=== PATIENT | female | born 1955 | race Hispanic/Latino ===

== ENCOUNTER 2017-09-14 19:52 | Inpatient (IN) | payer BC, OTHER ==
[~2017-09-14] VITALS: Ht 162.6 cm; Wt 84.8 kg
[2017-09-14] MEDS ORDERED: SODIUM CHLORIDE 0.9% 1000ML 1,000 ML IV STA ×3 (20:36→23:23)
[2017-09-14] MEDS ORDERED: PANTOPRAZOLE 40 MG 10ML VIAL IV STA (20:36)
[2017-09-14] MEDS ORDERED: ONDANSETRON HCL INJ 2 MG/ML VIAL IV STA (20:36)
[2017-09-14] MEDS ORDERED: ACETAMINOPHEN 1000 MG/100 ML IV STA (20:39)
[2017-09-14] MEDS ORDERED: ONDANSETRON HCL INJ 2 MG/ML VIAL ONE (20:44)
[2017-09-14] MEDS ORDERED: SODIUM CHLORIDE 0.9% 1000ML 1,000 ML ONE (20:45)
[2017-09-14] MEDS ORDERED: ACETAMINOPHEN 1000 MG/100 ML 100 ML IV ONE (20:45)
[2017-09-14] MEDS ORDERED: PANTOPRAZOLE 40 MG 10ML VIAL ONE (20:45)
[2017-09-14 21:08] LABS: BASOPHILS % 0.2 % (0.0-1.0); EOSINOPHILS % 0.1 % (0.0-6.0); HEMATOCRIT 39.1 % (34.2-44.1); HEMOGLOBIN 13.6 g/dL (12.0-16.0); LYMPHOCYTES # (AUTO) 1.5 (1.0-3.2); LYMPHOCYTES % 10.5 % (18.0-39.1); MEAN CORPUSCULAR HEMOGLOBIN 28.2 pg (28-32); MEAN CORPUSCULAR HGB CONC 34.8 g/dL (31-35); MONOCYTES # (AUTO) 1.1 (0.2-0.8); MONOCYTES % 7.9 % (4.4-11.3); NEUTROPHILS # (AUTO) 11.7 (2.1-6.9); NEUTROPHILS % 80.3 % (38.7-80.0); PLATELET COUNT 210 x10e3/uL (140-360); RED BLOOD COUNT 4.83 x10e6/uL (3.6-5.1); RED CELL DISTRIBUTION WIDTH 12.5 % (11.7-14.4)
[2017-09-14] MEDS ORDERED: DIATRIZOATE MEGL/DIATRIZOA SOD 30 ML BTL PO ONE (21:14)
[2017-09-14 21:16] LABS: INR 1.07; PROTHROMBIN TIME 14.5 seconds (11.9-14.5)
[2017-09-14 21:17] LABS: PARTIAL THROMBOPLASTIN TIME 43.9 seconds (23.8-35.5)
[2017-09-14 21:27] LABS: ALBUMIN 3.3 g/dL (3.5-5.0); ALBUMIN/GLOBULIN RATIO 0.8 (0.8-2.0); ANION GAP 17.2 mmol/L (8-16); CALCIUM 8.8 mg/dL (8.4-10.2); CREATININE, SERUM 2.01 mg/dL (0.57-1.11); MAGNESIUM 1.9 MG/DL (1.3-2.1); POTASSIUM 3.2 mmol/L (3.5-5.1)
--- NOTE | 2017-09-14 21:31 | Diagnostic Imaging Report ---
EXAMINATION: CHEST SINGLE (PORTABLE) INDICATION: Nausea, vomiting, fever, cough COMPARISON: None FINDINGS: TUBES and LINES: None. LUNGS: Lungs are not well inflated. Lungs are clear. There is no evidence of pneumonia or pulmonary edema. PLEURA: No pleural effusion or pneumothorax. HEART AND MEDIASTINUM: The cardiomediastinal silhouette is unremarkable. BONES AND SOFT TISSUES: No acute osseous lesion. Soft tissues are unremarkable. UPPER ABDOMEN: No free air under the diaphragm. IMPRESSION: No acute thoracic abnormality. Signed by: Dr. James Mauricio M.D. on 09/14/2017 9:27 PM
[2017-09-14 21:33] LABS: CREATINE KINASE MB 1.3 ng/mL (0.00-5.00)
[2017-09-14] MEDS ORDERED: VITAMIN D1000 UNI1 PO (21:43)
[2017-09-14] MEDS ORDERED: LOSARTAN POTAS100 MG PO (21:43)
[2017-09-14] MEDS ORDERED: SERTRALINE HCL50 MG PO (21:43)
[2017-09-14] MEDS ORDERED: MYLAN (21:43)
[2017-09-14] MEDS ORDERED: METFORMIN HCL500 MG PO (21:43)
[2017-09-14 22:04] LABS: ABG PCO2 28 mmHg (41-51); ABG PH 7.47 (7.31-7.41)
[2017-09-14 22:05] LABS: ABG HCO3 20 mmol/L (23-28); ABG PO2 97 mmHg (80-105)
[2017-09-14 22:08] LABS: BILIRUBIN,URINE 1+ (NEGATIVE); KETONES,URINE NEGATIVE (NEGATIVE); LEUKOCYTE ESTERASE ,URINE 1+ (NEGATIVE); NITRITE,URINE NEGATIVE (NEGATIVE); URINE UROBILINOGEN 4 mg/dL (0.2 - 1)
[2017-09-14] MEDS ORDERED: VANCOMYCIN 1GM/NS 250 ML 250 ML IV STA (22:31)
[2017-09-14 22:36] LABS: CLARITY,URINE SL CLOUDY (CLEAR); COLOR,URINE AMBER (YELLOW); PROTEIN,URINE DIPSTICK 1+ (NEGATIVE)
[2017-09-14 22:40] LABS: BACTERIA,URINE MODERATE /HPF; EPITHELIAL CELLS,URINE FEW /LPF
[2017-09-14] MEDS ORDERED: CEFEPIME HCL 2 GM VIAL IV SCH (22:45)
--- NOTE | 2017-09-14 23:33 | Diagnostic Imaging Report ---
EXAM: CT Abdomen and Pelvis WITHOUT contrast INDICATION: Dehydration, nausea, vomiting, diarrhea COMPARISON: None. TECHNIQUE: Abdomen and pelvis were scanned utilizing a multidetector helical scanner from the lung base to the pubic symphysis without administration of IV contrast. Absence of intravenous contrast decreases sensitivity for detection of focal lesions and vascular pathology. Coronal and sagittal reformations were obtained. Routine protocol was performed. IV CONTRAST: None. ORAL CONTRAST: Gastrografin RADIATION DOSE: Total DLP: 635.97 mGy*cm Estimated effective dose: (DLP x 0.015 x size factor) mSv COMPLICATIONS: None FINDINGS: LINES and TUBES: None. LOWER THORAX: Unremarkable HEPATOBILIARY: No focal hepatic lesions. No biliary ductal dilation. GALLBLADDER: There are numerous stones in the gallbladder. No wall thickening. SPLEEN: No splenomegaly. PANCREAS: No focal masses or ductal dilatation. ADRENALS: No adrenal nodules KIDNEYS/URETERS: No hydronephrosis. No cystic or solid mass lesions. No stones. GI TRACT: No abnormal distention, wall thickening, or evidence of bowel obstruction. There are diverticula within the colon without evidence of diverticulitis. Appendix is normal. PELVIC ORGANS/BLADDER: The uterus is absent. The left ovary is present. Right ovary is not seen. The Chapa catheter decompresses the urinary bladder LYMPH NODES: No lymphadenopathy. VESSELS: There is mild atherosclerotic disease in the aorta and major arterial branches. PERITONEUM / RETROPERITONEUM: No free air or fluid. BONES: There are degenerative changes in the lumbar spine. SOFT TISSUES: Unremarkable. IMPRESSION: 1. No evidence of acute intra-abdominal or pelvic abnormality. 2. Cholelithiasis without evidence of acute cholecystitis. 3. Chapa catheter decompresses the bladder Signed by: Dr. James Mauricio M.D. on 09/14/2017 11:29 PM
--- NOTE | 2017-09-14 23:33 | Diagnostic Imaging Report ---
History: AMS Comparison studies: None Technique: Axial images were obtained from the skull base to the vertex. Coronal and sagittal reconstructions obtained from the axial data. Findings: Scalp/skull: No abnormalities. No fractures, blastic or lytic lesions. Extra-axial spaces: No masses. No fluid collections. Brain sulci: Appropriate for age. Ventricles: Normal in size and configuration. No hydrocephalus. Parenchyma: No abnormal densities. No masses, hemorrhage, acute or chronic cortical vascular insults. Sellar/suprasellar region: No abnormalities Craniocervical junction: Patent foramen magnum. No Chiari one malformation. IMPRESSION: No abnormalities . Signed by: DR Mynor Colon M.D. on 09/14/2017 11:29 PM
[2017-09-15] MEDS ORDERED: ONDANSETRON HCL INJ 2 MG/ML VIAL IV PRN
[2017-09-15] MEDS ORDERED: PROMETHAZINE 12.5MG/ NACL 0.9% 12.5 MG/50 ML BAG IV PRN (00:15)
[2017-09-15 00:45] LABS: BASOPHILS % 0.3 % (0.0-1.0); EOSINOPHILS % 0.1 % (0.0-6.0); HEMATOCRIT 30.2 % (34.2-44.1); HEMOGLOBIN 10.3 g/dL (12.0-16.0); LYMPHOCYTES # (AUTO) 1.5 (1.0-3.2); LYMPHOCYTES % 12.3 % (18.0-39.1); MEAN CORPUSCULAR HEMOGLOBIN 28.1 pg (28-32); MEAN CORPUSCULAR HGB CONC 34.1 g/dL (31-35); MEAN CORPUSCULAR VOLUME 82.3 fL (81-99); MONOCYTES # (AUTO) 1.1 (0.2-0.8); MONOCYTES % 8.7 % (4.4-11.3); NEUTROPHILS # (AUTO) 9.6 (2.1-6.9); NEUTROPHILS % 77.9 % (38.7-80.0); PLATELET COUNT 164 x10e3/uL (140-360); RED BLOOD COUNT 3.67 x10e6/uL (3.6-5.1); RED CELL DISTRIBUTION WIDTH 12.5 % (11.7-14.4)
[2017-09-15] MEDS ORDERED: SODIUM CHLORIDE 0.9% 1000ML 1,000 ML IV STA (01:12)
[2017-09-15] MEDS: POTASSIUM CHLORIDE 10MEQ/100ML 100 ML IV SCH ×3 (01:21→05:53)
[2017-09-15] MEDS ORDERED: SODIUM CHLORIDE 0.9% 250ML 250 ML ONE (02:30)
[2017-09-15] MEDS: SODIUM CHLORIDE 0.9% 1000ML 1,000 ML IV SCH ×4 (03:09→20:40)
[2017-09-15] MEDS: CEFEPIME 2 GM/NS 0.9% 100 ML 100 ML IV SCH ×2 (03:54→12:38)
[2017-09-15 05:58] LABS: BASOPHILS % 0.2 % (0.0-1.0); EOSINOPHILS % 0.1 % (0.0-6.0); HEMATOCRIT 33.7 % (34.2-44.1); HEMOGLOBIN 11.4 g/dL (12.0-16.0); LYMPHOCYTES # (AUTO) 1.2 (1.0-3.2); LYMPHOCYTES % 8.5 % (18.0-39.1); MEAN CORPUSCULAR HEMOGLOBIN 28.4 pg (28-32); MEAN CORPUSCULAR HGB CONC 33.8 g/dL (31-35); MONOCYTES # (AUTO) 1.1 (0.2-0.8); MONOCYTES % 7.4 % (4.4-11.3); NEUTROPHILS # (AUTO) 12.1 (2.1-6.9); NEUTROPHILS % 82.8 % (38.7-80.0); PLATELET COUNT 182 x10e3/uL (140-360); RED BLOOD COUNT 4.01 x10e6/uL (3.6-5.1); RED CELL DISTRIBUTION WIDTH 12.7 % (11.7-14.4)
[2017-09-15] MEDS: ACETAMINOPHEN 325 MG TAB PO PRN ×2 (06:06→19:45)
[2017-09-15 06:40] LABS: ALBUMIN 2.6 g/dL (3.5-5.0); ALBUMIN/GLOBULIN RATIO 0.8 (0.8-2.0); ANION GAP 11.7 mmol/L (8-16); CALCIUM 7.4 mg/dL (8.4-10.2); CREATININE, SERUM 1.63 mg/dL (0.57-1.11); POTASSIUM 3.7 mmol/L (3.5-5.1)
[2017-09-15 07:58] LABS: CREATINE KINASE MB 2.2 ng/mL (0.00-5.00)
[2017-09-16] VITALS (7 sets, daily range): BP systolic 108–162; BP diastolic 68–86
[2017-09-16] MEDS: CEFEPIME 2 GM/NS 0.9% 100 ML 100 ML IV SCH ×3 (01:17→23:30)
[2017-09-16] MEDS: ACETAMINOPHEN 325 MG TAB PO PRN ×4 (01:40→19:20)
[2017-09-16] MEDS: SODIUM CHLORIDE 0.9% 1000ML 1,000 ML IV SCH ×4 (01:41→21:14)
[2017-09-16] MEDS ORDERED: DEXTROSE 50% SYRINGE 50 ML IV PRN (05:30)
[2017-09-16] MEDS: INSULIN REGULAR, HUMAN 100 UNIT/1 ML 3ML VIAL SQ SCH ×4 (07:30→21:00)
[2017-09-16] MEDS: METFORMIN HCL 500 MG TAB PO SCH (16:23)
[2017-09-17] VITALS (7 sets, daily range): BP systolic 108–149; BP diastolic 64–83
[2017-09-17] MEDS: SODIUM CHLORIDE 0.9% 1000ML 1,000 ML IV SCH ×2 (04:34→11:48)
[2017-09-17] MEDS: ACETAMINOPHEN 325 MG TAB PO PRN ×2 (06:32→20:59)
[2017-09-17 07:09] LABS: BASOPHILS % 0.2 % (0.0-1.0); EOSINOPHILS % 0.1 % (0.0-6.0); HEMATOCRIT 34.4 % (34.2-44.1); HEMOGLOBIN 11.8 g/dL (12.0-16.0); LYMPHOCYTES # (AUTO) 1.2 (1.0-3.2); MEAN CORPUSCULAR HEMOGLOBIN 28.1 pg (28-32); MEAN CORPUSCULAR HGB CONC 34.3 g/dL (31-35); MEAN CORPUSCULAR VOLUME 81.9 fL (81-99); MONOCYTES # (AUTO) 0.5 (0.2-0.8); MONOCYTES % 5.6 % (4.4-11.3); NEUTROPHILS # (AUTO) 6.5 (2.1-6.9); NEUTROPHILS % 77.7 % (38.7-80.0); PLATELET COUNT 267 x10e3/uL (140-360); RED CELL DISTRIBUTION WIDTH 12.7 % (11.7-14.4)
[2017-09-17] MEDS: INSULIN REGULAR, HUMAN 100 UNIT/1 ML 3ML VIAL SQ SCH ×2 (07:30→11:30)
[2017-09-17 07:31] LABS: BLOOD UREA NITROGEN 6 mg/dL (7-26); BUN/CREATININE RATIO 8 (6-25); CALCIUM 8.3 mg/dL (8.4-10.2); CARBON DIOXIDE 21 mmol/L (22-29); CHLORIDE 105 mmol/L (98-107); CREATININE, SERUM 0.72 mg/dL (0.57-1.11); EST GLOMERULAR FILTRATION RATE > 60 ML/MIN (60-); GLUCOSE 115 mg/dL (74-118); SODIUM 135 mmol/L (136-145)
[2017-09-17] MEDS: LOSARTAN POTASSIUM 100 MG TAB PO SCH (08:18)
[2017-09-17] MEDS: METFORMIN HCL 500 MG TAB PO SCH (08:18)
[2017-09-17] MEDS: CHOLECALCIFEROL 1,000 UNIT TAB PO SCH (08:19)
[2017-09-17] MEDS: SERTRALINE HCL 50 MG TAB PO SCH (08:19)
[2017-09-17 08:39] LABS: BAND NEUTROPHILS % (MANUAL) 2 %; LYMPHOCYTES % (MANUAL) 7 % (19-48); MONOCYTES % (MANUAL) 2 % (3.4-9.0); NEUTROPHILS % (MANUAL) 88 % (40-74); PLATELET ESTIMATE ADEQUATE; RBC MORPHOLOGY COMMENT NORMAL
[2017-09-17 08:40] LABS: PLATELET MORPHOLOGY COMMENT NORMAL
[2017-09-17] MEDS ORDERED: POTASSIUM CHLORIDE 20 MEQ TAB CR PO ONE ×2 (10:00→11:30)
[2017-09-17] MEDS: CEFEPIME HCL 2 GM VIAL IV SCH ×2 (11:36→23:02)
[2017-09-17] MEDS ORDERED: DEXTROSE 50% SYRINGE 50 ML IV PRN (12:30)
[2017-09-17] MEDS: INSULIN LISPRO 100 UNIT/1 ML 3ML VIAL SQ SCH ×2 (16:30→20:59)
[2017-09-18] VITALS (8 sets, daily range): BP systolic 92–170; BP diastolic 58–77
[2017-09-18] MEDS: INSULIN LISPRO 100 UNIT/1 ML 3ML VIAL SQ SCH ×4 (07:30→21:00)
[2017-09-18] MEDS: LOSARTAN POTASSIUM 100 MG TAB PO SCH (08:02)
[2017-09-18] MEDS: CHOLECALCIFEROL 1,000 UNIT TAB PO SCH (08:02)
[2017-09-18] MEDS: SERTRALINE HCL 50 MG TAB PO SCH (08:03)
[2017-09-18] MEDS: ACETAMINOPHEN 325 MG TAB PO PRN ×2 (08:14→21:09)
[2017-09-18 09:28] LABS: BASOPHILS % 0.5 % (0.0-1.0); EOSINOPHILS # (AUTO) 0.1 (0.0-0.4); EOSINOPHILS % 0.8 % (0.0-6.0); HEMATOCRIT 32.8 % (34.2-44.1); LYMPHOCYTES # (AUTO) 1.3 (1.0-3.2); LYMPHOCYTES % 17.3 % (18.0-39.1); MEAN CORPUSCULAR HEMOGLOBIN 27.6 pg (28-32); MEAN CORPUSCULAR HGB CONC 33.5 g/dL (31-35); MEAN CORPUSCULAR VOLUME 82.2 fL (81-99); MONOCYTES # (AUTO) 0.6 (0.2-0.8); MONOCYTES % 7.5 % (4.4-11.3); NEUTROPHILS # (AUTO) 5.5 (2.1-6.9); NEUTROPHILS % 72.1 % (38.7-80.0); PLATELET COUNT 264 x10e3/uL (140-360); RED BLOOD COUNT 3.99 x10e6/uL (3.6-5.1); RED CELL DISTRIBUTION WIDTH 12.9 % (11.7-14.4)
[2017-09-18 09:55] LABS: ANION GAP 10.1 mmol/L (8-16); BLOOD UREA NITROGEN 7 mg/dL (7-26); BUN/CREATININE RATIO 11 (6-25); CALCIUM 8.3 mg/dL (8.4-10.2); CARBON DIOXIDE 23 mmol/L (22-29); CHLORIDE 103 mmol/L (98-107); CREATININE, SERUM 0.65 mg/dL (0.57-1.11); EST GLOMERULAR FILTRATION RATE > 60 ML/MIN (60-); GLUCOSE 165 mg/dL (74-118); POTASSIUM 3.1 mmol/L (3.5-5.1); SODIUM 133 mmol/L (136-145)
[2017-09-18] MEDS ORDERED: POTASSIUM CHLORIDE 20 MEQ TAB CR PO ONE ×2 (11:30→12:45)
[2017-09-18] MEDS: CEFEPIME HCL 2 GM VIAL IV SCH ×2 (12:21→23:30)
[2017-09-19] VITALS: BP 138/65
[2017-09-19] MEDS ORDERED: SODIUM CHLORIDE 0.9% 50ML 50 ML ONE (01:15)
[2017-09-19 04:00] VITALS: BP 185/80
[2017-09-19 06:41] LABS: BASOPHILS % 0.4 % (0.0-1.0); EOSINOPHILS # (AUTO) 0.1 (0.0-0.4); EOSINOPHILS % 1.1 % (0.0-6.0); HEMATOCRIT 33.3 % (34.2-44.1); LYMPHOCYTES # (AUTO) 1.7 (1.0-3.2); MEAN CORPUSCULAR HEMOGLOBIN 27.5 pg (28-32); MEAN CORPUSCULAR VOLUME 83.3 fL (81-99); MONOCYTES # (AUTO) 0.7 (0.2-0.8); MONOCYTES % 9.6 % (4.4-11.3); NEUTROPHILS # (AUTO) 4.7 (2.1-6.9); NEUTROPHILS % 63.9 % (38.7-80.0); PLATELET COUNT 291 x10e3/uL (140-360)
[2017-09-19 07:01] LABS: ALANINE AMINOTRANSFERASE 34 IU/L (0-55); ALBUMIN 2.6 g/dL (3.5-5.0); ALBUMIN/GLOBULIN RATIO 0.8 (0.8-2.0); ALKALINE PHOSPHATASE 74 IU/L (40-150); ANION GAP 13.8 mmol/L (8-16); BLOOD UREA NITROGEN 9 mg/dL (7-26); BUN/CREATININE RATIO 14 (6-25); CALCIUM 8.6 mg/dL (8.4-10.2); CARBON DIOXIDE 24 mmol/L (22-29); CHLORIDE 105 mmol/L (98-107); CREATININE, SERUM 0.63 mg/dL (0.57-1.11); EST GLOMERULAR FILTRATION RATE > 60 ML/MIN (60-); GLUCOSE 93 mg/dL (74-118); POTASSIUM 3.8 mmol/L (3.5-5.1); SODIUM 139 mmol/L (136-145)
[2017-09-19 07:30] VITALS: BP 157/92
[2017-09-19] MEDS: INSULIN LISPRO 100 UNIT/1 ML 3ML VIAL SQ SCH ×3 (07:30→16:30)
[2017-09-19 07:36] VITALS: BP 157/92
[2017-09-19] MEDS: CHOLECALCIFEROL 1,000 UNIT TAB PO SCH (10:13)
[2017-09-19] MEDS: LOSARTAN POTASSIUM 100 MG TAB PO SCH (10:13)
[2017-09-19] MEDS: SERTRALINE HCL 50 MG TAB PO SCH (10:13)
[2017-09-19 11:25] VITALS: BP 136/66
[2017-09-19] MEDS: CEFEPIME HCL 2 GM VIAL IV SCH (12:21)
[2017-09-19 14:51] VITALS: BP 131/68
--- NOTE | 2017-11-02 21:26 | Discharge Summary ---
CHIEF COMPLAINT: Not feeling good, not eating. FINAL DIAGNOSES 1. Urinary tract infection. 2. Diabetes type 2. 3. Hypertension. DISPOSITION: Home. HOSPITAL COURSE: A 62-year-old female with known history of diabetes type 2, hypertension, brought to the ER with a 1- to 2-week history of generalized weakness that has gotten progressively worse. She underwent review in the emergency room. She was noted to have a temp of 101.9 with findings of hypotension and for further care and management, the patient was admitted to facility for treatment regarding generalized weakness, sepsis, dehydration, diabetes type 2 and hypertension. Will undergo blood and urine cultures, begin IV fluids. Home medications will be continued and reconciled. On the med/surg floor, she was on a clear liquid diet. Temperature improved, it was 99.7. She was receiving cefepime 1 g IV q.12, acetaminophen 650 p.o. q.4. Diabetic status meds were continuing. Laboratory studies were showing stable electrolytes. Kidney functions: BUN 34, creatinine 1.63, and glucose 104. CBC: Hemoglobin 11.4, white cell count of 14,000. Patient was beginning to feel better overall. Urine cultures were revealing gram-negative rods. The organism was identified as E. coli. She was continuing on her cefepime. Her potassium now had fallen to 3.0. Her metformin was stopped. Followup BUN was 6, creatinine was 0.72. Final white cell count was 8400. Her cefepime was upgraded to 2 g IV q.12. She is on potassium replenishment. Further potassium was 3.8. Kidney functions remained stable. White cell count remained stable. Continued to respond well to care and medication. The patient was ready to be discharged home on September 19, 2017, in stable condition. EKG was showing normal sinus rhythm. With discharge, she will continue on her 1800 calorie ADA diet. No equipment or supplies were necessary. No drain or Chapa was needed. Activity level as directed by myself. Followup care, she will be returning to her PCP within 7-10 days. She was given a prescription for Cipro 500 mg 1 tablet p.o. b.i.d. #14. She will continue on her daily medications of vitamin D3 of 5000 unit capsule daily. Will start potassium 100 mg daily, metformin 500 mg twice a day, sertraline 25 mg daily. If she has any further difficulties or new reoccurrences or concerns, she will be contacting her PCP. Dictated By: SEKOU Jackson. Job#: [id number]
== END 2017-09-19 18:18 | disposition home or self-care (01) | DRG 872 ==
LOC: ER 19:52 → ERHOLD 09-15 01:40 → MED/SURG2 09-16 05:26
DX: A41.51 Sepsis due to Escherichia coli [E. coli] (principal); N17.9 Acute kidney failure, unspecified; E11.8 Type 2 diabetes mellitus with unspecified complications; Z79.4 Long term (current) use of insulin; E87.6 Hypokalemia; I10 Essential (primary) hypertension
CPT/HCPCS: 36415; 36600; 70450; 71045; 74176; 80048; 80053; 81001; 82150; 82550; 82553; 82805; 82948; 83605; 83690; 83735; 84484; 85025; 85610; 85730; 87040; 87086; 87186; 87400; 87493; 93005; 99285; J0692; J2405; J3370; J3480; J7030; J7050